=== PATIENT | male | born 1980 | race Caucasian/White ===

== ENCOUNTER 2018-03-14 14:26 | Emergency (ER) | payer SELFPAY ==
--- NOTE | 2018-03-14 14:50 | ER Document Report ---
ED General - General Chief Complaint: Overdose Stated Complaint: POSSIBLE OVERDOSE Time Seen by Provider: 03/14/18 14:37 Notes: Patient is a 37-year-old male with history of opiate abuse that presents to the emergency department for chief complaint of overdose. Patient states that just prior to EMS arrival, he was snorting what he thinks was fentanyl, he typically snorts crushed opiate pills, denies using injectable opiates. He uses on a daily basis, this is the first time he thinks he is ever overdose. He apparently was a respiratory arrest upon EMS arrival, and required assistance by bag valve mask, documented 4 minutes, he received a total of 1 mg of intranasal Narcan, and 1 mg of IV Narcan, and he is now alert, oriented, and denies any specific complaints. He denies having any shortness of breath, chest pain, headache, lightheadedness, nausea or vomiting. Denies any generalized body aches. Past Medical History: Opiate abuse Past Surgical History: Denies surgical history Social History: Admits to smoking cigarettes daily, and occasional alcohol use, and admits to snorting opiates Family History: Reviewed and noncontributory for presenting illness Allergies: Reviewed, see documented allergy list. REVIEW OF SYSTEMS: Other than noted above, the 12 point review of systems was reviewed with the patient and were negative, all pertinent findings are included in the HPI. PHYSICAL EXAMINATION: Vital signs reviewed, nursing noted reviewed. GENERAL: Somewhat disheveled appearing male but in no acute distress. HEAD: Atraumatic, normocephalic. EYES: Eyes appear normal, extraocular movements intact, sclera anicteric, conjunctiva are normal. ENT: nares patent, oropharynx clear without exudates. Moist mucous membranes. NECK: Normal range of motion, supple without lymphadenopathy LUNGS: Breath sounds clear to auscultation bilaterally and equal. No wheezes rales or rhonchi. HEART: Heart rate tachycardic, regular rhythm ABDOMEN: Soft, nontender, normoactive bowel sounds. No rebound, guarding, or rigidity. No masses appreciated. EXTREMITIES: Nontender, good range of motion, no pitting or edema. NEUROLOGICAL: No focal neurological deficits. Moves all extremities spontaneously Motor and sensory grossly intact on exam. PSYCH: Normal mood, normal affect. SKIN: Warm, Dry, normal turgor, no rashes or lesions noted on exposed skin - Related Data Allergies/Adverse Reactions: No Known Allergies Allergy (Verified 03/14/18 14:36) Past Medical History - Social History Smoking Status: Current Every Day Smoker Drug Abuse: Heroin, Prescription drugs Family History: Reviewed & Not Pertinent Patient has suicidal ideation: No Patient has homicidal ideation: No Renal/ Medical History: Denies: Hx Peritoneal Dialysis Physical Exam - Vital signs Vitals: Resp BP Pulse Ox 18 123/109 H 100 03/14/18 14:33 03/14/18 14:33 03/14/18 14:33 Course - Re-evaluation Re-evalutation: Patient seen and examined, vital signs reviewed, patient is mildly tachycardic, normotensive, lungs are clear, alert and oriented x4 on my exam, pulse ox 96% on room air. We will obtain an EKG. And monitor the patient post Narcan administration, the patient remains alert, and is able to obtain a sober ride home, will discharge him, I gave him extensive instructions that he needs to discontinue using illegal opiates, may seek opiate detox centers, patient states that he has been trying to, but has a strong addiction to these medications, discussed with him further, that there are options, in his town of [place], he needs to follow-up with his local resources there. - Vital Signs Vital signs: Temp Pulse Resp BP Pulse Ox 97.4 F 122 H 13 131/97 H 98 03/14/18 14:36 03/14/18 14:36 03/14/18 16:01 03/14/18 16:01 03/14/18 16:01 Discharge - Discharge Clinical Impression: Overdose Qualifiers: Encounter type: initial encounter Injury intent: accidental or unintentional Qualified Code(s): T50.901A - Poisoning by unspecified drugs, medicaments and biological substances, accidental (unintentional), initial encounter Condition: Stable Disposition: HOME, SELF-CARE Additional Instructions: I highly encourage you to discontinue taking opiates, withdrawal from opiates can be uncomfortable, but is not lethal, and it will benefit you, if you continue to use opiates, there is an increased chance, that she could overdose resulting in , as well as injury, with the type of work 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 Please follow-up with local resources, and addiction clinics. Referrals: MAR DE OLIVEIRA MD [COMMUNITY BASED STAFF] - Follow up in 3-5 days (primary care. )
[2018-03-14 16:04] VITALS: BP 131/97
--- NOTE | 2018-03-14 18:35 | EKG REPORT ---
SEVERITY:- ABNORMAL ECG - ATRIAL FIBRILLATION, V-RATE [id number] RIGHT AXIS DEVIATION BORDERLINE T ABNORMALITIES, INFERIOR LEADS BORDERLINE PROLONGED QT INTERVAL : Confirmed by: Mariana Da Silva 14-Mar-2018 18:34:47
== END 2018-03-14 16:15 | disposition home or self-care (01) ==
LOC: ER 14:26
DX: T50.901A Poisoning by unspecified drugs, medicaments and biological substances, accidental (unintentional), initial encounter (principal); Y92.818 Other transport vehicle as the place of occurrence of the external cause; R00.0 Tachycardia, unspecified; F17.210 Nicotine dependence, cigarettes, uncomplicated; F11.10 Opioid abuse, uncomplicated
CPT/HCPCS: 93005; 93010; 99284